=== PATIENT | female | born 1935 | race Caucasian/White ===

== ENCOUNTER 2018-06-03 10:50 | Day surgery (SDC) | payer MEDICARE, OTHER ==
[~2018-06-03] VITALS: Ht 149.9 cm; Wt 70.8 kg
[~2018-06-03 10:50] MED LIST: ALLOPURINOL100 MG PO; ASPIR-LOW81 MG PO; BENAZEPRIL HCL20 MG PO; GABAPENTIN100 MG PO; LEVOTHYROXINE100 MCG PO; METFORMIN HCL500 MG PO; POTASSIUM GLUC500 MG PO
--- NOTE | 2018-06-03 11:46 | NUR ---
PATIENT READY FOR SURGERY, STORE CLERK CHECKER AND DOCTOR IN TO SEE PATIENT.
--- NOTE | 2018-06-03 14:15 | NUR ---
06/03/18 1415 Jannet Hermosillo 1409 PT ARRIVED TO PACU REACTIVE AND THEN BACK TO SLEEP. RESP EVEN AND UNLABORED, SOME SNORING NOTED.
--- NOTE | 2018-06-03 14:50 | NUR ---
1440 PATIENT ARRIVED BACK TO DAY SURGERY, IS AWAKE AND ORIENTED. PATIENT IS ON 2L OF OXYGEN FOR 99% SATS. PATIENT TITRATED TO 1L AND 98% SATS. PATIENT DENIES PAIN OR NAUSEA AT THIS TIME. DISCUSSED WITH PATIENT DISCHARGE PARAMETERS, PLAN TO LET PATIENT REST FOR A BIT. PATIENT DENIES NEED TO VOID AT THIS TIME.
[2018-06-03] MEDS ORDERED: PERCOCET 5-3251 EACH PO (15:20)
[2018-06-03] MEDS ORDERED: AUGMENTIN 875-1 EACH PO (15:22)
[2018-06-03] MEDS ORDERED: PYRIDIUM200 MG PO (15:23)
--- NOTE | 2018-06-03 15:50 | NUR ---
PATIENT RATES POST MEDICATION PAIN 2/10 AND IS COMFORTABLE. PATIENT DENIES NEED TO VOID AT THIS TIME, PLAN TO AMBULATE IN NEXT 30 MINUTES. IV IS SALINE LOCKED. PATIENT TOLERATES ICE CHIPS AND BITES OF CRACKERS, JELLO PROVIDED.
--- NOTE | 2018-06-03 16:19 | NUR ---
PATIENT UP TO VOID 250ML OF CLEAR BLOOD TINGED URINE, DENIES PAIN WITH URINATION. PATIENT TOLERATING PO INTAKE, AMBULATED INDEPENDANTLY.
--- NOTE | 2018-06-03 16:39 | NUR ---
PATIENT GIVEN DISCHARGE INSTRUCTIONS, RIGHT ARM IV D/C'D WITH CATHETER INTACT. PATIENT GIVEN WHEELCHAIR RIDE TO FRONT DOOR, FAMILY TRANSPORTING PATIENT HOME.
--- NOTE | 2018-06-05 09:48 | OR ---
[facility] [address] [place], [place] [address] Signed DATE OF OPERATION: 06/03/2018 SURGEON: Zeb Auguste MD PREOPERATIVE DIAGNOSES: 1. Gross hematuria. 2. Right renal pelvis filling defect. 3. 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 POSTOPERATIVE DIAGNOSES: 1. Gross hematuria. 2. Right renal pelvis filling defect. 3. 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 4. Renal pelvis lesion. PROCEDURES: 1. Diagnostic cystoscopy with right retrograde pyelogram. 2. Right ureteral, and renal washings. 3. Right flexible nephroscopy with attempted biopsy. 4. Urethral dilation, from #18-Liberian to #24-Liberian. 5. Insertion of a right double-J ureteral stent. ANESTHESIA: General. ESTIMATED BLOOD LOSS: 20 mL. COMPLICATIONS: None. SPECIMENS: Right renal, and ureteral washing sent to pathology for evaluation. DRAINS: A 6 x 22 cm contour double-J ureteral stent, inserted into the right kidney. INDICATIONS FOR PROCEDURE: Ms. Hyatt is a very pleasant 82-year-old female with a remote history of tobacco use, as well as chemical exposure who was recently sent to my clinic for evaluation of gross Electronically Signed By: ZEB AUGUSTE MD 06/05/18 0948 PATIENT NAME: GÓMEZ HYATT OPERATIVE REPORT DATE OF : 37 REPORT #: [id number] PHYSICIAN: ZEB AUGUSTE MD PCP: FELICIANO FORBES "АЛЕКСАНДР" REPORT IS CONFIDENTIAL AND NOT TO BE RELEASED WITHOUT AUTHORIZATION [facility] [address] [place], [place] [address] Signed hematuria. The patient denied any flank pain, or dysuria at the time. She underwent a contrasted CT scan, which revealed a filling defect in the right renal pelvis along with an inferior wedge infarct present within the right kidney. The left kidney appeared to be of normal shape, size and coloration, without any renal masses. The noncontrast images revealed no evidence of renal calculi. Thereafter, she was scheduled to undergo cystoscopy with ureteral washings, as well as possible biopsy of the filling defect within the right renal pelvis. OPERATIVE FINDINGS: 1. On cystoscopy, there was no evidence of any suspicious masses, lesions, or stones. Bilateral ureteral orifices are in their normal anatomic location. There is a small amount of blood effluxing from the right ureter. A right retrograde pyelogram was performed, which did reveal a filling defect in the superior pole of the right kidney. Otherwise, there was no evidence of any calyceal dilation or distention. 2. Separate ureteral and renal washings were obtained and sent to the cytology lab for evaluation. 3. Right flexible nephroscopy revealed the presence of a very large well organized blood clot covering the surface of what appeared to be a friable lesion located in the upper pole the right kidney. There were no obvious papillary characteristics to this lesion. However, it appeared to be friable in nature. I attempted a biopsy of this area. However, the biopsy forceps that I had were relatively small and they broke during an active attempt at obtaining a tissue sample. I was able to extract quite a few chunks of organized blood clot from the right renal pelvis. Overall, it is difficult to assess the exact origin of this particular friable area within the right renal pelvis. 4. The patient's urethra was dilated prior to the procedure, from #18-Liberian to #24-Liberian without difficulty. 5. At the end of the procedure, a 6 x 22 cm contour double-J ureteral stent was inserted into the right ureter without difficulty. There was no excessive bleeding coming from the ureteral orifice after successful insertion of the stent. DESCRIPTION OF PROCEDURE: After informed consent was obtained, the patient was taken back to the operating room. She was transferred [facility] the [facility] to the operating room table, where general anesthesia was induced. She was placed in dorsal lithotomy position and her genitalia prepped and draped in a standard sterile fashion. Using a #30-degree lens on a #22.5-Liberian introducer, rigid cystoscope was inserted through the urethra into her bladder under direct visualization. Panendoscopic views of the bladder were then obtained including the lateral swain, floor, dome, and trigone areas. Please see above findings. I then turned my attention to the right ureteral orifice. I inserted a 0.035 Sensor wire up into the right collecting system and confirmed placement with fluoroscopy. Prior to doing this, I did perform a right retrograde pyelogram using a whistle-tip ureteral catheter. Please see above findings. Once the pyelogram was Electronically Signed By: EZB AUGUSTE MD 06/05/18 0948 PATIENT NAME: GÓMEZ HYATT OPERATIVE REPORT DATE OF : 37 REPORT #: [id number] PHYSICIAN: ZEB AUGUSTE MD PCP: FELICIANO FORBES "SERAFIN THORPE REPORT IS CONFIDENTIAL AND NOT TO BE RELEASED WITHOUT AUTHORIZATION [address] [address] Signed performed, I did notice blood slowly oozing from the right ureteral orifice. Once the Sensor wire was in place, I passed an 08/20 ureteral access sheath into the right ureter under fluoroscopic guidance. I then repeated the right retrograde pyelogram to confirm placement of the sheath. Prior to the retrograde pyelogram, both renal and ureteral washings were obtained via the whistle tip catheter. Each of the washings was placed in a separate cup and sent to cytology for evaluation. Again, once the Sensor wire was then placed, the ureteral access sheath was then placed under fluoroscopic guidance. A flexible ureteroscope was then passed through the sheath and up into the proximal ureter and right renal pelvis. Upon entry into the right renal pelvis I noticed immediately a very large well organized blood clot that seemed to be adhered to the wall of the upper pole lateral calyx within the right renal pelvis. I began to basket these large clots of blood from this area and I was able to retrieve about 50% of the blood clots, making it easier for me to assess the lesion on the wall of the renal pelvis. Overall, the lesion did appear to be slightly different in characteristic from the remaining wall of the renal pelvis, and that it was slightly more vascular in appearance. I do not appreciate any overtly papillary characteristics associated with this lesion. I passed a biopsy forceps into the right renal pelvis, and attempted a biopsy of this area. The tissue was very firm, and was not pliable easily, and ultimately I experienced dysfunction of the biopsy forceps during active retrieval of the tissue. Unfortunately, I was unable to obtain a piece of area in question within the renal pelvis. I did, however, perform a repeat renal pelvis washing to be sent for cytology at that time. I do not appreciate any other foreign objects within the renal pelvis, and there was no evidence of calculi in the right renal pelvis. Once I could get as much organized blood clot out as possible I removed the flexible ureteroscope, and placed a Sensor wire through the sheath into the right renal pelvis. The ureteral access sheath was then removed fully intact. Over the indwelling Sensor wire, I passed a 6 x 22 cm contour double-J ureteral stent into the patient's right ureter under direct visualization. An adequate proximal coil was seen on fluoroscopy along with an adequate distal coil within the bladder on cystoscopy. The patient's bladder was then drained and the cystoscope was removed. The procedure was then terminated. The patient tolerated the procedure well without any complication. She will now be transferred to the postanesthesia care unit in stable condition. DISPOSITION: I discussed the details of today's procedure with the patient's family and answered all their questions. I explained to them that I did indeed see an abnormality on the wall of the right renal pelvis. However, I could not identify exactly what it was by gross visualization. I also explained to them that I was unable to get a good piece of tissue to be sent for pathological analysis; however, I did obtain multiple renal and ureteral washings in an effort to find any abnormal cells in those specimens. I explained to the family that she will require a referral to likely a genitourinary/oncologic specialist for further evaluation of this area. She will also require referral to a vascular Electronically Signed By: ZEB AUGUSTE MD 06/05/18 0948 PATIENT NAME: GÓMEZ HYATT OPERATIVE REPORT DATE OF : 37 REPORT #: [id number] PHYSICIAN: ZEB AUGUSTE MD PCP: FELICIANO FORBES "АЛЕКСАНДР" REPORT IS CONFIDENTIAL AND NOT TO BE RELEASED WITHOUT AUTHORIZATION [facility] [address] [place] [id number] Signed surgeon for evaluation of her wedge infarction that is present within the lower pole of her right kidney. I explained to the family today that I would contact a couple of colleagues to determine where she would best be served, and that she would also get a referral to vascular surgeon for evaluation of her renal infarction on that side. MD GUSTAVO Bethea/BRANNONL /[id number] Copies: ~ Electronically Signed By: ZEB AUGUSTE MD 06/05/18 0948 PATIENT NAME: GÓMEZ HYATT OPERATIVE REPORT DATE OF : 37 REPORT #: [id number] PHYSICIAN: ZEB AUGUSTE MD PCP: FELICIANO FORBES "SERAFIN THORPE REPORT IS CONFIDENTIAL AND NOT TO BE RELEASED WITHOUT AUTHORIZATION
== END 2018-06-03 16:40 | disposition home or self-care (01) ==
LOC: OPS 10:50 → DS 10:50 → OPS 11:00 → DS 11:00 → OPS 16:40
PROVIDERS: Urology
PROC: 0T768DZ Dilation of Right Ureter with Intraluminal Device, Via Natural or Artificial Opening Endoscopic (ICD-10-PCS; principal; 2018-06-03 11:00)
DX: R31.0 Gross hematuria (principal); N28.0 Ischemia and infarction of kidney; N28.89 Other specified disorders of kidney and ureter; R93.41 Abnormal radiologic findings on diagnostic imaging of renal pelvis, ureter, or bladder; R32 Unspecified urinary incontinence; I10 Essential (primary) hypertension; E03.9 Hypothyroidism, unspecified; E11.9 Type 2 diabetes mellitus without complications; N81.9 Female genital prolapse, unspecified; Z79.82 Long term (current) use of aspirin; Z79.899 Other long term (current) drug therapy; Z87.891 Personal history of nicotine dependence; Z88.8 Allergy status to other drugs, medicaments and biological substances; Z79.84 Long term (current) use of oral hypoglycemic drugs
CPT/HCPCS: 74420; C2617; J0330; J0696; J1170; J1885; J2704; J3010; J7120; Q9967